=== PATIENT | female | born 1970 | race Two or more races ===

== ENCOUNTER → 2024-10-24 | Outpatient (CLI) | payer MEDICAID, SELFPAY ==
--- NOTE | 2024-10-24 13:04 | XR_ITS ---
Examination: CT chest, without intravenous contrast. Sagittal and coronal 2-D reconstructions. Exam date and time: October 24, 2024 1336 hours INDICATIONS: Lung nodules one year CTDI:vol (mGy) 6.70 DLP: (mGycm) 256 Technique: Multiple 3.0 mm axial sections of the chest to been obtained. Bone and lung density settings are obtained. Sagittal and coronal 2-D reconstructions have been obtained. Low dose protocols were performed. One or more of the following dose reduction techniques were used; automated exposure control, adjustment of the mA and/or KV according to patient size, use of iterative reconstruction technique. Findings: No thoracic aortic aneurysm dilatation Pulmonary artery segments are not enlarged Mild calcification left anterior descending coronary artery No paratracheal tracheobronchial or bronchopulmonary adenopathy 10 mm pulmonary nodule right upper lobe with calcification axial image 172 Linear scarring in the lingular segment axial image 251 11 mm pulmonary nodule right lower lobe image 283 No pneumonia or pulmonary edema COPD with areas of airspace destruction No visualized liver or splenic lesion Contracted gallbladder No pancreatic mass 3.4 cm anterior right renal cyst IMPRESSION: 11 mm pulmonary nodule right lower lobe image 283, differential would include early pulmonary neoplasm
== END | disposition home or self-care (01) ==
PROVIDERS: Referring Provider Specialist; Visit Provider Specialist
DX: R91.1 Solitary pulmonary nodule (principal)
CPT/HCPCS: 71250

== ENCOUNTER → 2025-04-16 | Outpatient (CLI) | payer MEDICAID, SELFPAY ==
--- NOTE | 2025-04-16 08:00 | XR_ITS ---
Examination: CT chest, without intravenous contrast. Sagittal and coronal 2-D reconstructions. Exam date and time: April 16, 2025 0818 hours Comparison October 24, 2024 INDICATIONS: History lung nodules, 10 mm pulmonary nodule right upper lobe 11 mm pulmonary nodule right lower lobe on CT chest October 24, 2024 CTDI:vol (mGy) 7.45 DLP: (mGycm) 269 Technique: Multiple 3.0 mm axial sections of the chest to been obtained. Bone and lung density settings are obtained. Sagittal and coronal 2-D reconstructions have been obtained. Low dose protocols were performed. One or more of the following dose reduction techniques were used; automated exposure control, adjustment of the mA and/or KV according to patient size, use of iterative reconstruction technique. Findings: No thoracic aortic aneurysm dilatation Pulmonary artery segments are not enlarged. No paratracheal tracheobronchial or bronchopulmonary adenopathy Stable partially calcified 10 mm pulmonary nodule right upper lobe Stable noncalcified 11 mm pulmonary nodule right lower lobe No new pulmonary nodules No pneumonia or pulmonary edema or pleural disease No visualized liver or splenic lesion IMPRESSION: Stable pulmonary nodules compared with October 24, 2024, no new pulmonary nodules
== END | disposition home or self-care (01) ==
LOC: CCTX 08:01
PROVIDERS: PCP Family Medicine; Referring Provider Specialist; Visit Provider Specialist
DX: R91.8 Other nonspecific abnormal finding of lung field (principal)
CPT/HCPCS: 71250